=== PATIENT | female | born 1980 | race Caucasian/White ===

== ENCOUNTER 2016-08-27 07:00 | Inpatient (IN) | payer OTHER, MEDICARE ==
[~2016-08-27] VITALS: Ht 170.2 cm; Wt 111.6 kg
[~2016-08-27 07:00] MED LIST: PERCOCET 325 MG1 TA2 PO
--- NOTE | 2016-08-27 14:58 | Operative Report ---
Operative/Inv Procedure Report Surgery Date: 08/27/16 Name of Procedure: A repeat low flap transverse section bilateral tubal ligation Pre-Operative Diagnosis: 2 previous sections multiparity Post-Operative Diagnosis: Same Estimated Blood Loss: 500 Surgeon/Manager Endoscopy: ANAIS SCOTT,LULU AckermanAND DR SNIDER Anesthesia: block Operative/Procedure Note Note: Patient was taken the operating and placed prone position after adequate skin testing for spinal anesthesia Gonsalez was placed the abdomen was prepped and draped so fashion patient was returned spine position on through an old Pfannenstiel skin incision at the abdomen prepped draped sterile fashion the skin was cut was carried down to rectus fascia which was cut in curvilinear fashion I direction high into the abdomen the abdomen was entered on the peritoneum was dissected bluntly as well as sharply adhesions from the omentum were noted peritoneum high into the abdomen in the lower uterine segment the uterus was cut knife was entered using the back of knife dissected bluntly as well as sharply wants was removed from the field infant was delivered over the abdominal wall with reduction quarter and the neck 1 cord was doubly clamped cut was handed automatic dry starch operator was waiting delivering to aid in resuscitation placenta was delivered manually noted to be intact was wiped clean with 2R last insurance free of membranes the uterus was oversewn running locking suture was indicated interrupted [id number] is well hemostasis was apparent at this point the right tube was picked up carried to term. And clamped using a Arianne oversewn times to cut and burned using a Bovie specimen sent to pathology left tube was picked up carried to its fimbriated end was picked up with Arianne clamps 2 oversewn 2 cut and burned specimen sent to pathology hemostasis was apparent uses turned to abdominal cavity irrigated stasis which was a The uterus is also low running locking suture with [id number] for hemostasis as well. Peritoneum was reapproximated 0 fascia was reapproximated using 2 continuous sutures of #1 skin was reapproximated sonia after subcutaneous case tissue was Bovie quite patient tolerated that well
[2016-08-28 09:40] LABS: ABSOLUTE BASOPHIL COUNT 0 /CUMM (0.0-0.2); ABSOLUTE EOSINOPHIL COUNT 0.1 /CUMM (0.0-0.7); ABSOLUTE GRANULOCYTE CT 4.6 /CUMM (1.4-6.5); ABSOLUTE LYMPH COUNT 1.1 /CUMM (1.2-3.4); ABSOLUTE MONOCYTE COUNT 0.5 /CUMM (0.10-0.60); BASOPHIL % 0.2 % (0.0-2.0); GRANULOCYTE % 72.9 % (42.2-75.2); MEAN CORPUSCULAR HGB 32.4 PG (27.0-31.0); MEAN CORPUSCULAR VOLUME 95.4 FL (81.0-99.0); MEAN PLATELET VOLUME 8.5 FL (7.4-10.4); PLATELET COUNT 147 /CUMM (130-400); RBC DISTRIBUTION WIDTH 13.7 % (11.5-14.5); RED BLOOD CELL CT 3.45 /CUMM (4.20-5.40); WHITE BLOOD CELL COUNT 6.3 /CUMM (4.8-10.8)
[2016-08-28 09:57] LABS: HEMATOCRIT 32.9 % (37-47)
--- NOTE | 2016-08-28 10:57 | PN- Post Delivery/GYN ---
Subjective Subjective: NO C/O Review of Systems: NEG Objective Last 24 Hrs of Vital Signs/I&O INCSION C/D/I EXT NT Assessment/Plan Assessment/Plan S/P C/S BTL POD1 STABLE D/C JAQUEZ ADVANCE DIET INCREASE ACTIVITY SYNTHRIOD
--- NOTE | 2016-08-29 12:32 | PN- Post Delivery/GYN ---
Subjective Subjective: NO C/O Review of Systems: NEG Objective Last 24 Hrs of Vital Signs/I&O VSS Physical Exam: FF INCISION C/D/I EXT NT Assessment/Plan Assessment/Plan S/P C/S POD2 STABLE DISCHARGE AM Problem List: 1.
[2016-08-30] MEDS ORDERED: OMEPRAZOLE20 M2 PO (11:28)
--- NOTE | 2016-08-30 11:31 | PN- Post Delivery/GYN ---
Subjective Subjective: C/O ITCH Objective Last 24 Hrs of Vital Signs/I&O PER PAPER CHART Physical Exam: PE OBESE WF ABD SOFT MACUPAPULAR RASH C/W OR PREP INCISION SEROUS DRAINAGE LOCHIA MINIMAL FUNDUS FIRM NT EXT -EDEMA -HOMANS Assessment/Plan Assessment/Plan ASSESS S/P C/S ALLERGIC RXN TO PREP PLAN BENADYRL DISCHARGE WITHINSTRUCTIONS
--- NOTE | 2016-09-16 11:53 | Surgical Discharge Summary ---
Visit Information Visit Dates Admission Date: 08/27/16 Discharge Date: 08/30/16 History of Present Illness Chief Complaint: 35-year-old 6 para 2031 presents for repeat section and tubal ligation at term patient undergoes a section she does very well Surgical History Pertinent Surgical History: (BACK AND GASTRIC BYPASS) Psychosocial History What is Your Primary Language? Danish Review of Systems: -13 point review of systems as stated in HPI Hospital Course Course Attending Physician: LULU MANZO MD Primary Care Physician: MARELY ELKINS MD Hospital Course: She underwent a section she did well on discharge tolerated clear liquid diet first. Dissection postoperative day she tolerated regular diet passed gas on the third postoperative day the patient wanted to go home on she was discharged with the following physical examination well-developed white female HEENT anicteric lungs clear heart S1 and S2 abdomen soft nontender incision clean dry and intact extremities negative edema negative Homans Allergies: Coded Allergies: NSAIDS (Non-Steroidal Anti-Inflamma (Intermediate, STOMACH IRRITATION 08/27/16) Disposition Summary Disposition Principal Diagnosis: Status post repeat section Additional Diagnosis: Last post-tubal ligation Discharge Disposition: home or self care Discharge Instructions General Discharge Information Code Status: Full Code Patient's Diet: Regular R Patient's Activity: Regress no heavy lifting nothing the vagina for 6 weeks on no driving for 2 weeks no lifting greater than 15 pounds for 6 weeks Follow-Up Instructions/Appts: 1 week in the return visit in 2 weeks in my office Medications at Discharge Discharge Medications: Continue taking these medications: OXYCODONE HCL/ACETAMINOPHEN (Percocet 5-325 MG Tablet) 325 MG/5 MG TAB 1 Tablet ORAL EVERY 4 HOURS NEEDED as needed for PAIN SCALE 7-8 Qty = 30 Comments: Last Taken:06/21/14 Time:1100 Start taking the following new medications: Omeprazole (Omeprazole) 20 MG CAPSULE. 40 Milligram ORAL DAILY Qty = 60 No Refills Comments: Last Taken:08/30/16 Time:1015
== END 2016-08-30 12:30 | DRG 766 ==
LOC: SDA 07:00 → GNO 10:24
PROVIDERS: ADMIT Specialist
PROC: 10D00Z1 Extraction of Products of Conception, Low, Open Approach (ICD-10-PCS; principal; 2016-08-27)
PROC: 0U570ZZ Destruction of Bilateral Fallopian Tubes, Open Approach (ICD-10-PCS; principal; 2016-08-27)
DX: O34.211 Maternal care for low transverse scar from previous cesarean delivery (principal); N85.8 Other specified noninflammatory disorders of uterus; Z3A.39 39 weeks gestation of pregnancy; Z37.0 Single live birth; Z30.2 Encounter for sterilization; O69.81X0 Labor and delivery complicated by cord around neck, without compression, not applicable or unspecified; L23.3 Allergic contact dermatitis due to drugs in contact with skin
CPT/HCPCS: GNOS; 87086; 88302; J0690; J1650; J1885; J7120

== ENCOUNTER → 2017-08-04 | Day surgery (SDC) | payer OTHER, MEDICARE ==
[~2017-08-04] VITALS: Ht 170.2 cm; Wt 99.8 kg
[~2017-08-04] MED LIST changes: +OMEPRAZOLE20 M2 PO
--- NOTE | 2017-08-04 17:05 | ULTRASOUND REPORT ---
EXAMINATION: INTRAOPERATIVE ULTRASOUND CLINICAL INDICATION: Dilatation and curettage. Cryoablation with ultrasound guidance. COMPARISON: None TECHNIQUE/FINDINGS: Ultrasound equipment was dedicated to the operating room and ultrasound guidance was provided for the performance of an intraoperative procedure. 8 images were acquired and are archived in PACS. Please refer to operative notes for procedural detail. IMPRESSION: Administrative dictation for intraoperative ultrasound and image archiving in PACS. Please refer to operative notes for details.
--- NOTE | 2017-08-05 11:57 | Operative Report ---
Operative/Inv Procedure Report Surgery Date: 08/04/17 Name of Procedure: D&C cryoablation of the uterus Pre-Operative Diagnosis: Menorrhagia Post-Operative Diagnosis: Same Estimated Blood Loss: less than 50ml Surgeon/Hospitality Internship: Gurdeep SCOTT,Beatriz Ackerman Anesthesia: moderate sedation Operative/Procedure Note Note: Procedure note patient was taken to the operating room placed on position after adequate anesthesia patient placed in dorsolithotomy position the vagina from dorsal fashion bladder was catheterized examination under anesthesia performed a single-tooth tenaculum was placed on the Intralipid cervix gentle downward traction cervix was dilated to 29 Hegar to allow for the insertion of a sharp curette sharp curettage was performed at this point to specimens was sent to pathology 1 from the ECC 1 from the endometrial cavity I at this point the bladder was catheterized filled with approximate 400 mL normal saline at which point under ultrasound guidance a probe was inserted into the uterus and approximately 8 minutes cryo-ablation was performed patient tolerated that well at this point wants was removed from the vagina the patient was returned spine position to awake from anesthesia and transported to the recovery room awake and alert with counts correct
== END ==
LOC: STS 04-14 07:00 → XRY 04-14 10:30 → STS 05-05 07:00
DX: N92.0 Excessive and frequent menstruation with regular cycle (principal); E07.9 Disorder of thyroid, unspecified
CPT/HCPCS: 76998; 88305; J0131; J1885; J2250; J2405